=== PATIENT | male | born 1990 | race Caucasian/White ===

== ENCOUNTER 2021-05-13 17:26 | Emergency (ER) | payer OTHER, SELFPAY ==
[2021-05-13 17:40] VITALS: BP 148/96; PULSE 106; RESP 21; TEMP 36.4; O2SAT 98; BMI 26.6
--- NOTE | 2021-05-13 17:43 | ED_ITS ---
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 Patient tells me that he develops hives to bees. He was drinking water earlier today when he noticed there was a bee in the water and he actually swallowed the bee. Since then, patient has noticed rash throughout his body. Patient denies any nausea/vomiting, wheezing, or throat swelling. He does endorse a foreign object sensation in the throat since the incident and thinks he may have swalled the bee. No prior history of anaphylaxis or angioedema to anything. Onset:15 minutes ago Duration:15 minutes Location:home Severity:moderate Review of Systems Narrative: Constitutional: No fever, no chills. HEENT: No vision changes CV: No chest pain, no palpitations PULM: no cough, no dyspnea. GI: No abdominal pain, no N/V/D. : No dysuria MSKEL: No muscle pain SKIN: +hives throughout head/chest/body NEURO: No headache, no focal weakness. HEME: No visible bruises PSYCH: Normal mood Physical Exam Narrative: EXAM NARRATIVE: Head: Atraumatic Eyes: PERRL, conjunctiva without injection ENT: Mucous membrane moist, no signs of oropharyngeal area involvement NECK: Supple, ROM intact LUNGS: LCTAB, no wheezing CV: RRR ABDOMEN: Soft, nontender in all quadrants EXTREMITY: Normal ROM SKIN: +urticaria throughout face, chest and back NEURO: Awake and alert, no focal motor deficits PSYCH: Normal mood and affect Course Vital Signs: Vital signs: Vital Signs Temperature 97.6 F 05/13/21 17:40 Pulse Rate 78 05/13/21 21:19 Respiratory Rate 18 05/13/21 21:19 Blood Pressure 134/77 05/13/21 21:19 Pulse Oximetry 98 05/13/21 21:19 MDM - General Adult MDM Narrative: Medical decision making narrative: 30-year-old male who presents emergency room with foreign object sensation in throat and diffuse urticaria. On exam, patient is hemodynamically stable, no signs of airway or airway compromise. Patient continued be satting well while observed in the emergency room. Intervention: IVF, Pepcid, Benadryl, Solu-Medrol Patient was observed in the emergency room for 3 hours, symptoms of urticaria and erythema significantly improved on reassessment of the face, chest and back. Patient no longer has any hives anywhere. Patient continues to be hemodynamically stable satting at greater than 95%. Patient has no signs of oral airway compromise. Patient reports of foreign object sensation in the anterior throat. I topicalized the patient's throat with viscous lidocaine and visualized oropharynx with glidescope. There is no signs of any impending oral airway compromise. Do not see any retained foreign objects in the throat at this time. I suspect the patient may be stung by a bee in the throat and that is what he is experiencing persistent sensation from a prior cut. At this time, I do not suspect any retained foreign object in the throat. Patient tolerated liquids without any difficulty the emergency room. Rx Benadryl and Pepcid as needed for allergic reaction Disposition: Discharge. Patient is given strict return precaution for any worsening symptoms of throat swelling, difficulty breathing, rash or itchiness, or any new concerning issues. Patient instructed to eat liquid till he feels like he is able to tolerate solids. Discharge Plan Discharge Patient Disposition: Home Clinical Impression: Urticaria, Allergic reaction Condition: Stable Prescriptions: New Benadryl 25 mg capsule 25 mg PO BID PRN (Reason: allergic reaction) 3 Days Qty: 6 RF: 0 Pepcid 20 mg tablet 20 mg PO BID PRN (Reason: allergic reaction) 3 Days Qty: 6 RF: 0 Discharge Orders: Discharge ED (Routine); Ordered 05/13/21 Ordered By: Kashif Arora Discharge Diet: Advance as tolerated Discharge Activity: Resume usual activity Patient Instructions: Allergic Reaction Activity Restrictions/Additional Instructions: Please come back to the emergency room if you notice any more itchiness, difficulty swallowing, drooling, difficulty breathing, or if you have any worsening rash or any other concerning issues. Coding Level of Care Code ED Light Industrial Supervisor for Wilma You
[2021-05-13] MEDS: diphenhydrAMINE 50 mg/mL SDV 1mL IVP (17:46)
[2021-05-13] MEDS: famotidine 20 mg/2 mL INJ 40 MG IVP (17:46)
[2021-05-13 17:50] VITALS: BP 145/100; PULSE 87; RESP 18; O2SAT 96
[2021-05-13] MEDS: lidocaine 2% viscous 15 mL UDC 30 ML MUCOUS MEM (17:56)
[2021-05-13] MEDS: sodium chloride 0.9% 1,000 ML 999 ML IV (17:57)
[2021-05-13 21:19] VITALS: BP 134/77; PULSE 78; RESP 18; O2SAT 98
== END 2021-05-13 21:15 | disposition home or self-care (01) ==
PROVIDERS: Emergency Provider Emergency Medicine
DX: L50.0 Allergic urticaria (principal)
CPT/HCPCS: 96361; 96374; 96375; 99284; J1200; J2930; J3490; J7030

== ENCOUNTER 2022-10-20 08:26 | Observation (INO) | payer OTHER, SELFPAY ==
[2022-10-20] VITALS (7 sets, daily range): BP systolic 125–148; BP diastolic 84–109; PULSE 50–102; RESP 16–18; TEMP 36.7; O2SAT 98–100; BMI 25.0; BMI 24.1
--- NOTE | 2022-10-20 08:55 | CT_ITS ---
WS: [id number] CT ABDOMEN AND PELVIS WITH CONTRAST HISTORY: upper abd pain TECHNIQUE: Imaging performed of the abdomen and pelvis with IV contrast. Single phase imaging of the abdomen. Coronal and sagittal reformats are submitted. All CT scans at [facility] use at [address] one of these dose optimization techniques: automated exposure control; mA and/or kV adjustment per patient size (includes targeted exams where dose is matched to clinical indication); or iterative re construction. IV CONTRAST: Omnipaque 350; 100 mL IV. Oral contrast: No DLP: 369.89 mGy.cm COMPARISON: None available. Lower thorax: Lung bases are clear. Heart is normal size. No hiatal hernia. Liver/biliary system: Normal size liver. Hepatic steatosis along the falciform ligament. Otherwise li evita is normal. Normal portal vein. Gallbladder: Gallbladder is mildly hydropic. There is no wall thickening or enhancement. No stone or pericholecystic fluid identified. Pancreas: Normal size pancreas and pancreatic duct. No adjacent inflammation. Spleen: Normal size spleen. No mass or infarct. Adrenal glands: Normal. Right kidney: Normal. Left kidney: Normal. Aorta: Normal. Lymphadenopathy: None. Free fluid: None. GI tract: Stomach is moderately distended with fluid. There is also duodenal C-loop fluid distention. Distal to the duodenum the small bowel is more normal caliber. Appendix is normal. No colon obstruct ion or significant constipation. Abdominal wall: Unremarkable abdominal wall. No hernia. Pelvis: No free fluid or adenopathy within the pelvis. Bones: Unremarkable. CT/CT abdomen pelvis w con* [id number] IMPRESSION: 1. Very minimally overly distended gallbladder. No stones or pericholecystic f luid identified. For further evaluation gallbladder ultrasound can be obtained to evaluate for stones and sludge. 2. Common bile duct appears normal. 3. Moderate fluid distention of the stomach and duodenum. Consider mild gastro enteritis. 4. Normal appendix.
--- NOTE | 2022-10-20 08:56 | ED_ITS ---
HPI - Abdominal Pain General: Chief Complaint: Abdominal Pain Stated Complaint: Right side pain, SOB Time Seen by Provider: 10/20/22 08:36 Source: patient Mode of arrival: ambulatory Limitations: no limitations History of Present Illness: This patient presents to emergency department because of concerns about constant right upper quadrant pain that began approximately 3 AM. He states the pain woke him from sleep and has been present unremittingly since onset. He states he is not had pain like this before. He has had occasional twinges of similar discomfort but never this sustained. He states it hurts to take a deep breath. He denies any fevers or chills. He did have 1 bout of emesis prior to arrival. He did have a bowel movement and has urinated normally. No history of kidney stones, prior abdominal surgeries, known gallbladder disease. He does not drink alcohol, use street drugs and only rarely smokes tobacco. Course Reevaluation(s): Reevaluation #1: CT scan results noted. We will proceed with a gallbladder ultrasound to further delineate his gallbladder. Patient is currently comfortable and essentially almost pain-free. Time: 13:11 Consultations: Consultation #1: Discussed with Dr. Callaway who agrees to admit patient. Time: 15:08 Vital Signs: Vital signs: Vital Signs Pulse Rate 76 10/20/22 09:31 Respiratory Rate 16 10/20/22 10:29 Blood Pressure 148/96 10/20/22 09:31 Pulse Oximetry 98 10/20/22 09:31 Oxygen Delivery Me thod 10/20/22 08:39 MDM - Abdominal Pain Medical Decision Making Gentleman comes to the emergency department because of right upper quadrant pain that is been waxing and waning over number of days but worsened over the past 24 hours. No history of gallbladder disease that he knows of and no prior abdominal surgeries. His clinical examination reveals right upper quadrant tenderness of diffuse nature. Work-up was engaged to evaluate the potential etiologies of his abdominal pain but gallbladder disease being high on the list of that differential. Initial CT scan was reassuring and that there was no evidence of bowel obstruction, appendicitis, pancreatic inflammation etc. ho wever there is some question of abnormality in his gallbladder region. Subsequent gallbladder ultrasound showed significant sludge pericolic fluid and other changes suggestive of cholecystitis. With normal alk phos, total bili common bile duct stone is unlikely. General surgery was consulted who made treatment recommendations and agreed to admit the patient to the hospital for further care. Differential Diagnosis Likely abdominal pain; Unlikely acute appendicitis, diverticulitis, gastroenteritis or pancreatitis Lab Data I reviewed the patient's lab results. 10/20/22 09:30 10/20/22 09:30 Labs/Radiology: Radiology Impressions Abdomen/Pelvis CT 10/20/22 08:55 IMPRESSION: 1. Very minimally overly distended gallbladder. No stones or pericholecystic fluid identified. For further evaluation gallbladder ultrasound can be obtained to evaluate for stones and sludge. 2. Common bile duct appears normal. 3. Moderate fluid distention of the stomach and duodenum. Consider mild gastroenteritis. 4. Normal appendix. Gallbladder Ultrasound 10/20/22 13:11 IMPRESSION: 1. Mild gallbladder hydrops with severe gallbladder wall edema and fluid. Gallbladder is distended with sludge and debris. No definite stones identified. Finding is consistent with acute cholecystitis. Recommend surgical evaluation. 2. Normal bile duct. Notified Albert Todd DO at 10/20/2022 2:31 PM. Laboratory Results WBC 13.5 10^3/uL (4.0-10.0) H 10/20/22 09:30 RBC 5.01 10^6/uL (4.1-5.3) 10/20/22 09:30 Hgb 15.4 g/dL (11.7-16.6) 10/20/22 09:30 Hct 45.5 % (42.0-52.0) 10/20/22 09:30 MCV 90.8 fl (80-94) 10/20/22 09:30 MCH 30.7 pg (28.0-34.0) 10/20/22 09:30 MCHC 33.8 g/dL (30.0-36.0) 10/20/22 09:30 RDW 11.4 % (12.1-15.1) L 10/20/22 09:30 Plt Count 269 10^3/cmm (130-400) 10/20/22 09:30 MPV 9.6 fL (7.4-10.4) 10/20/22 09:30 Neut % (Auto) 84.3 % 10/20/22 09:30 Lymph % (Auto) 11.3 % 10/20/22 09:30 Spencer % (Auto) 3.2 % 10/20/22 09:30 Eos % (Auto) 0.4 % 10/20/22 09:30 Baso % (Auto) 0.4 % 10/20/22 09:30 Neut # (Auto) 11.35 10^3/uL (1.8-7.7) H 10/20/22 09:30 Lymph # (Auto) 1.5 10^3/uL (0.8-4.8) 10/20/22 09:30 Spencer # (Auto) 0.4 10^3/uL (0.2-0.9) 10/20/22 09:30 Eos # (Auto) 0.1 10^3/uL (0.0-0.8) 10/20/22 09:30 Baso # (Auto) 0.1 10^3/uL (0.0-0.1) 10/20/22 09:30 Nucleated RBC % (auto) 0 % 10/20/22 09:30 Nucleated RBCs # 0.0 /100WBC 10/20/22 09:30 Sodium 137 mmol/L (136-145) 10/20/22 09:30 Potassium 3.7 mmol/L (3.5-5.1) 10/20/22 09:30 Chloride 101 mmol/L (98-107) 10/20/22 09:30 Carbon Dioxide 27 mmol/L (22-29) 10/20/22 09:30 Anion Gap 12.7 (5-19) 10/20/22 09:30 BUN 7 mg/dL (6-20) 10/20/22 09:30 Creatinine 0.9 mg/dL (0.7-1.2) 10/20/22 09:30 GFR Calculation 96.6 mL/min (90-130) 10/20/22 09:30 Glucose 180 mg/dL (65-115) H 10/20/22 09:30 Calculated Osmolality 287 mOsm/kg (285-295) 10/20/22 09:30 Calcium 8.9 mg/dL (8.5-10.5) 10/20/22 09:30 Total Bilirubin 0.2 mg/dL (0.15-1.2) 10/20/22 09:30 AST 13 U/L (0-40) 10/20/22 09:30 ALT 9 U/L (0-41) 10/20/22 09:30 Alkaline Phosphatase 57 U/L (40-130) 10/20/22 09:30 Total Protein 7.1 g/dL (6.6-8.7) 10/20/22 09:30 Albumin 4.2 g/dL (3.5-5.2) 10/20/22 09:30 Globulin 2.9 g/dL (1.3-4.6) 10/20/22 09:30 Lipase 22 U/L (13-60) 10/20/22 09:30 Urine Color Light yellow (Yellow) 10/20/22 10:38 Urine Appearance Clear (CLEAR) 10/20/22 10:38 Urine pH 7 (5-7) 10/20/22 10:38 Ur Specific [place] 1.000 (1.005-1.030) L 10/20/22 10:38 Urine Protein Trace (Negative) H 10/20/22 10:38 Urine Glucose (UA) Norm (Normal) 10/20/22 10:38 Urine Ketones Negative (Negative) 10/20/22 10:38 Urine Blood Neg (Negative) 10/20/22 10:38 Urine Nitrate Negative (Negative) 10/20/22 10:38 Urine Bilirubin Neg (Negative) 10/20/22 10:38 Urine Urobilinogen Norm mg/dL (Negative) 10/20/22 10:38 Ur Leukocyte Esterase Trace (Negative) H 10/20/22 10:38 Urine RBC None /hpf (0-2) 10/20/22 10:38 Urine WBC Rare /hpf (0-5) 10/20/22 10:38 Ur Squamous Epith Cells None /hpf (0-5) 10/20/22 10:38 Amorphous Sediment Not Reportable 10/20/22 10:38 Urine Bacteria None /hpf (NONE) 10/20/22 10:38 Discharge Plan Discharge Patient Disposition: Admitted As Inpatient Clinical Impression: Acute cholecystitis Condition: Stable Prescriptions: No Action Excedrin Migraine 250-250-65 mg Tablet 1 tab PO Q6H PRN (Reason: Migraine Headache) Coding Level of Care Code ED Credit Reporting Clerk for Wilma You
--- NOTE | 2022-10-20 09:38 | PC.NURSE ---
attempted to obtain labs and adm medication pt is not in room.
[2022-10-20 09:50] LABS: Basophils # 0.1 10^3/uL (0.0-0.1); Basophils % 0.4 %; Eosinophils # 0.1 10^3/uL (0.0-0.8); Eosinophils % 0.4 %; Hematocrit 45.5 % (42.0-52.0); Hemoglobin 15.4 g/dL (11.7-16.6); Lymphocytes # 1.5 10^3/uL (0.8-4.8); Lymphocytes % 11.3 %; Mean Corpuscular HGB Conc 33.8 g/dL (30.0-36.0); Mean Corpuscular Hemoglobin 30.7 pg (28.0-34.0); Mean Corpuscular Volume 90.8 fl (80-94); Mean Platelet Volume 9.6 fL (7.4-10.4); Monocytes # 0.4 10^3/uL (0.2-0.9); Monocytes % 3.2 %; Neutrophils # 11.35 10^3/uL (1.8-7.7); Neutrophils % 84.3 %; Nucleated Red Blood Cells % 0 %; Platelet Count 269 10^3/cmm (130-400); Red Blood Count 5.01 10^6/uL (4.1-5.3); Red Cell Distribution Width 11.4 % (12.1-15.1); White Blood Count 13.5 10^3/uL (4.0-10.0)
[2022-10-20] MEDS: iohexol 350 mg/mL 500 mL Btl (per mL) IV (09:51)
[2022-10-20 10:10] LABS: Alanine Aminotransferase 9 U/L (0-41); Albumin Level 4.2 g/dL (3.5-5.2); Alkaline Phosphatase 57 U/L (40-130); Anion Gap 12.7 (5-19); Aspartate Amino Transferase 13 U/L (0-40); Blood Urea Nitrogen 7 mg/dL (6-20); Calcium 8.9 mg/dL (8.5-10.5); Carbon Dioxide 27 mmol/L (22-29); Chloride 101 mmol/L (98-107); Globulin 2.9 g/dL (1.3-4.6); Glomerular Filtration Rate 96.6 mL/min (90-130); Glucose 180 mg/dL (65-115); Lipase 22 U/L (13-60); Osmolality Calculated 287 mOsm/kg (285-295); Potassium 3.7 mmol/L (3.5-5.1); Sodium 137 mmol/L (136-145); Total Bilirubin 0.2 mg/dL (0.15-1.2); Total Protein 7.1 g/dL (6.6-8.7)
[2022-10-20] MEDS: sodium chloride 0.9% 500 ML IV (10:27)
[2022-10-20] MEDS: morphine 4 mg/mL SDV 1 mL IVP (10:29)
[2022-10-20] MEDS: ondansetron 2 mg/ML SDV 2 mL 4 MG IVP (10:31)
[2022-10-20 11:11] LABS: Add Urine Microscopic? YES; Bilirubin Urine Neg (Negative); Blood Urine Neg (Negative); Glucose Urine UA Norm (Normal); Ketones Urine Negative (Negative); Leukocyte Esterase Urine Trace (Negative); Nitrate Urine Negative (Negative); Protein Urine Trace (Negative); Urine Appearance Clear (CLEAR); Urine Color Light yellow (Yellow); Urobilinogen Urine Norm (Negative); pH Urine 7 (5-7)
[2022-10-20 11:12] LABS: Add Urine Culture? No; WBC Urine RARE /hpf (0-5)
--- NOTE | 2022-10-20 12:35 | PC.PHAR ---
pt states he takes no rx medications only otc meds prn
--- NOTE | 2022-10-20 13:11 | US_ITS ---
WS: [id number] RIGHT UPPER QUADRANT ULTRASOUND HISTORY: ruq pain and abn CT COMPARISON: CT 3 2022 Liver: 11.7 cm in length. Normal size liver. No bile duct dilatation or mass. Portal Vein: Normal hepatopetal flow with monophasic waveform. Gallbladder: Abnormal gallbladder. Gallbladder is mildly hydropic as seen on the prior CT. By ultraso und there is marked diffuse wall thickening with pericholecystic fluid. Fluid in the gallbladder wall . Increased vascularity within the thickened gallbladder wall. Gallbladder is distended with fluid an d low level echoes. No shadowing stones identified. CBD: 0.5 cm Pancreas: Normal size and echogenicity. Right kidney: 10.2 cm in length. Normal size and echogenicity. No hydronephrosis or mass. Aorta and IVC: Unremarkable abdominal aorta and IVC. No ascites. US/US gall bladder [id number] IMPRESSION: 1. Mild gallbladder hydrops with severe gallbladder wall edema and fluid. Gall bladder is distended with sludge and debris. No definite stones identified. Fin ding is consistent with acute cholecystitis. Recommend surgical evaluation. 2. Normal bile duct. Notified Albert Todd DO at 10/20/2022 2:31 PM.
--- NOTE | 2022-10-20 15:31 | PC.NURSE ---
ATTEMPTED REPORT NURSE UNAVAILABLE.
--- NOTE | 2022-10-20 15:34 | PC.NURSE ---
REPORT GIVEN TO RAD HAYWARD.
[2022-10-20] MEDS: piperacillin-tazobactam 3.375 GM in sodium chloride 0.9% (plus) 50 ML IV (17:24)
--- NOTE | 2022-10-20 19:35 | PC.NURSE ---
PTS DIET ORDER IS REGULAR DIET UNTIL MIDNIGHT, THEN NPO.
--- NOTE | 2022-10-20 19:51 | PM.HP ---
Providers/Chief Complaint Admitting Physician: Tobias Callaway DO Chief Complaint: Right side pain, SOB History of Present Illness Meir Rivero is a 32 year old male who presented to the hospital with a several week history of intermittent right upper quadrant abdominal pain. He reports that its been fairly consistent for the last 2 days however. The pain is sharp and does not radiate. He reports some nausea but denies any emesis. Denies any diarrhea or constipation. Denies any fever chills. Denies any hematochezia and/or melena. Ultrasound in the ER shows acute cholecystitis. Review of Systems General: Reports: 10 or more systems reviewed and unremarkable except in HPI and below Medications/Allergies Home Medications Medication Instructions Recorded Confirmed Last Taken Type [id number]-[id number]-lrwtlpqy 250 1 tab PO Q6H PRN Migraine Headache 10/20/22 10/20/22 Unknown History mg-250 mg-65 mg tablet (Excedrin Migraine) Allergies Allergy/AdvReac Type Severity Reaction Status Date / Time No Known Drug Allergies Allergy Unknown Verified 10/20/22 12:34 Vitals/I&O/Wt Last Vital Signs Temp 98.0 F 10/20/22 16:48 Pulse 73 10/20/22 16:48 Resp 16 10/20/22 16:48 BP 135/88 10/20/22 16:49 Pulse Ox 100 10/20/22 16:48 O2 Del Method 10/20/22 16:48 10/20/22 10/20/22 10/20/22 06:59 14:59 22:59 Intake Total 550 / 550 Balance 550 / 550 Weight last 48 hrs Weight 145 lb 4.8 oz Weight 150 lb Physical Exam Narrative: General : Patient is well developed , no acute distress, oriented x3 Head : Normal cephalic, a-traumatic. Ears : Pinnae and external canal are normal. Hearing is normal. Eyes : PERRLA, Sclera and injection are normal. No conjunctival discharge. Nose : Mucous membranes are without erythema. Throat : buccal mucosa is normal, gums are without significant recession or hypertrophy. Lungs : Equal chest rise bilaterally, no use of accessory muscles, trachea is midline. Cor : Rate and rhythm are normal. Abdomen : Soft, ND, NT, no g/r/m Extremities : No edema, no cyanosis or clubbing, dorsalis pedis pulses are present bilaterally, non-tender to palpation of calves. Upper extremities are normal bilaterally. Back : non-tender to palpation, no CVA tenderness. Neuro : CN II - XII intact, Upper and lower extremities have equal and full strength Data 10/20/22 09:30 10/20/22 09:30 A&P Assessment and plan (1) Acute cholecystitis: Plan IV antibiotics Pain control N.p.o. after midnight Laparoscopic cholecystectomy in the morning The risks and benefits of the procedure, including but not limited to, bleeding, infection, scar, numbness, pain, damage to surrounding structures, damage to common bile duct requiring additional surgery, conversion to an open procedure, were explained to the patient. He is understanding of the risks and wishes to proceed. Attestations Medical Necessity Statement*: Patient requires at least 1 night in the hospital prior to laparoscopic cholecystectomy in the morning Coding Level of Care Code Acute Code for [facility] Diagnoses Acute cholecystitis K81.0
[2022-10-20] MEDS: HYDROcodone-acetaminophen 7.5-325 mg Tablet 1 TAB PO (20:08)
[2022-10-20] MEDS: LORazepam 0.5 mg Tablet 0.25 MG PO (20:09)
[2022-10-20] MEDS: sodium chloride 0.9% 1,000 ML 125 ML IV (20:20)
[2022-10-21] VITALS (18 sets, daily range): BP systolic 108–128; BP diastolic 69–89; PULSE 61–90; RESP 11–18; TEMP 36.2–36.9; O2SAT 93–100
[2022-10-21] MEDS: piperacillin-tazobactam 3.375 GM in sodium chloride 0.9% (plus) 50 ML IV ×2 (03:57→12:12)
[2022-10-21] MEDS: sodium chloride 0.9% 1,000 ML 125 ML IV ×2 (03:57→12:13)
[2022-10-21] MEDS: HYDROcodone-acetaminophen 7.5-325 mg Tablet 1 TAB PO ×3 (05:30→16:57)
[2022-10-21] MEDS: sodium chloride 0.9% 1,000 ML 30 ML IV (06:43)
--- NOTE | 2022-10-21 06:52 | W.PM.OPSUD ---
Surgery/Procedure H&P Update DATE OF PROCEDURE: October 21, 2022 DATE H&P PERFORMED: 10/20/22 H&P UPDATE INFORMATION: I have reviewed H&P completed within last 30 days, I have examined patient prior to procedure and No changes to prior documentation PLANNED PROCEDURE: Operation Date: 10/21/22 08:10 Proposed Procedures p Laparoscopic Cholecystectomy(Right) - Tobias Callaway DO
--- NOTE | 2022-10-21 07:26 | ANES.PREANE2 ---
Pre-Anesthetic Assessment Height/Weight: Height 1.65 m Weight 65.907 kg Temp Pulse Resp BP Pulse Ox O2 Del Method 97.8 F 85 18 116/84 98 10/21/22 06:39 10/21/22 06:39 10/21/22 06:39 10/21/22 06:39 10/21/22 06:39 10/21/22 06:39 Operation Date: 10/21/22 08:10 Proposed Procedures p Laparoscopic Cholecystectomy(Right) - Tobias Callaway DO Familial anesthetic complications: none Was Beta Mavis taken within 24 hours: N/A Was Clonidine taken within 24 hours: N/A Last intake: Intake Last Liquid Date 10/20/22 Last Liquid Time 20:00 Last Solid Date 10/20/22 Last Solid Time 20:00 Social Tobacco and No alcohol Exam alert, oriented x 3 and regular rate & rhythm Airway Submandibular: within normal limits Cervical ROM: within normal limits Mallampati: Class I Dentition: chipped Comments: Comments: Poor dentition, missing some Pulmonary Chronic Obstructive Pulmonary Disease Anesthetic Plan ASA status: 2 Anesthesia: General Medications/Allergies Home Medications Medication Instructions Recorded Confirmed Last Taken Type [id number]-[id number] 250 1 tab PO Q6H PRN Migraine Headache 10/20/22 10/20/22 Unknown History mg-250 mg-65 mg tablet (Excedrin Migraine) Allergies Allergy/AdvReac Type Severity Reaction Status Date / Time No Known Drug Allergies Allergy Unknown Verified 10/20/22 12:34 Current Medications Generic Name Dose Route Start Last Admin Trade Name Freq PRN Reason Stop Dose Admin Hydrocodone Bitart/Acetaminophen 1 tab 10/20/22 19:30 10/21/22 05:30 Hydrocodone-Acetaminophen 7.5-325 Mg Tablet PO 1 tab Q4H PRN Administration MODERATE PAIN Sodium Chloride 1,000 mls @ 125 mls/hr 10/20/22 20:00 10/21/22 03:57 Sodium Chloride 0.9% IV 125 mls/hr .Q8H YESSENIA Administration Piperacillin Sod/Tazobactam 50 mls @ 12.5 mls/hr 10/20/22 23:30 10/21/22 03:57 Sod 3.375 gm/ Sodium Chloride IV 12.5 mls/hr Q8H YESSENIA Administration Protocol Sodium Chloride 1,000 mls @ 30 mls/hr 10/21/22 06:45 10/21/22 06:43 Sodium Chloride 0.9% IV 10/22/22 06:44 30 mls/hr .Q24H YESSENIA Administration Lorazepam 0.25 mg 10/20/22 19:31 10/20/22 20:09 Lorazepam 0.5 Mg Tablet PO 0.25 mg TID PRN Administration ANXIETY Data Anesthesia 10/20/22 09:30 10/20/22 09:30 Short CBC 10/20/22 Range/Units 09:30 WBC 13.5 H (4.0-10.0) 10^3/uL Hgb 15.4 (11.7-16.6) g/dL Hct 45.5 (42.0-52.0) % MCV 90.8 (80-94) fl Plt Count 269 (130-400) 10^3/cmm Neut % (Auto) 84.3 % Neut # (Auto) 11.35 H (1.8-7.7) 10^3/uL BMP 10/20/22 09:30 Sodium 137 Potassium 3.7 Chloride 101 Carbon Dioxide 27 BUN 7 Creatinine 0.9 Glucose 180 H Calcium 8.9 Liver Function 10/20/22 Range/Units 09:30 Total Bilirubin 0.2 (0.15-1.2) mg/dL AST 13 (0-40) U/L ALT 9 (0-41) U/L Alkaline Phosphatase 57 (40-130) U/L Albumin 4.2 (3.5-5.2) g/dL Urine 10/20/22 Range/Units 10:38 Urine Color Light yellow (Yellow) Urine Appearance Clear (CLEAR) Urine pH 7 (5-7) Ur Specific [place] 1.000 L (1.005-1.030) Urine Protein Trace H (Negative) Urine Glucose (UA) Norm (Normal) Urine Ketones Negative (Negative) Urine Nitrate Negative (Negative) Urine Bilirubin Neg (Negative) Ur Leukocyte Esterase Trace H (Negative) Urine RBC None (0-2) /hpf Urine WBC Rare (0-5) /hpf Cardiac Studies: No Data to Display
[2022-10-21] MEDS: lidocaine-epi 2% 20 mL INJ INJECTION (08:15)
--- NOTE | 2022-10-21 08:45 | P.OP_ITS ---
Operative Report Date of procedure: October 21, 2022 Pre-op diagnosis: Acute cholecystitis Post-op diagnosis: same Procedure done: Laparoscopic cholecystectomy Specimens removed/disposition: Gallbladder Surgeon: Dr. Tobias Callaway DO Anesthesia: General Estimated blood loss (mL): 5 Complications: None apparent Brief History: Is a very pleasant 32-year-old gentleman who came to the ER with acute cholecystitis. Laparoscopic cholecystectomy was indicated. The risk and benefits were explained and documented. Procedure: Patient was wheeled into the operative room and placed on the OR table in a supine position. Abdomen was inspected prepped and draped in usual sterile fashion. Time-out was performed and all present were in agreement. A 15 blade scalp was used to make a stab incision in the left upper quadrant and intra- abdominal insufflation was achieved using a Veress needle. After localizing the tissue incisions were made and a 5 millimeter trocar was placed into the umbilicus as well as 2 in the right upper quadrant. A 12 millimeter trocar was placed in the epigastrium. The gallbladder was hydropic and inflamed. Omentum was adhered to the gallbladder and was taken down bluntly. Gallbladder was grasped and elevated. The triangle of Calot was carefully dissected using blunt dissection and electrocautery until the triangle of Calot clearly identified. The cystic duct was clipped proximally and double clipped distally. The duct was then ligated proximally. The cystic artery was doubly clipped and ligated. The gallbladder was then removed from the liver bed using electrocautery. The gallbladder was removed from the abdomen using an Endo-Catch bag through the epigastric incision. The liver bed was inspected and no bleeding was seen. The abdomen was irrigated and suctioned. All ports removed. Skin was washed and dried. Incisions were closed with 3-0 and 4-O Vicryl in a subcuticular interrupted fashion. Skin glue was applied. Patient tolerated the procedure well.
--- NOTE | 2022-10-21 10:55 | PC.CHAP ---
Pastoral Care Encounter/Spiritual Assessment Type of Contact [] Declined change director visit [] Patient/Family/Request visit [] Outpatient visit [] Follow-up visit [] Physician referral [] Code/Alert [x] Routine visit [] Staff referral [] Actively dying [] Patient sleeping [] Family support [] [] Out of room [] Palliative care [] [x] Receiving care in room [] Pre-surgical visit [] Trauma [] Long length of stay [] ICU visit [] Other: Relational/Emotional Strength [] Patient feels connected with others/family/visitors/staff [] Distress [] Loneliness/isolation [] Abandonment Spirituality of Patient [] Person of Jessie [] Attends Yazidi of their Jessie [] Believes in Prayer [] Reads Bible or Synagogue materials [] There are Spiritual issues to be addressed Set Off Press Operator Interventions [x] Prayer [] Active listening [] Non-anxious presence [] Spiritual/emotional support [] Crisis/trauma care [] Spiritual counseling [] Bereavement support [] Provided bereavement packet [] Provided Bible/devotional materials [] Provided toy/stuffed animal, coloring book to patient or family member [] Provided Communion [] Anointing/[place] [] Salvation [] Completed spiritual assessment [] Other: Impact on Illness or Injury [] Angry [] Fearful [] Anxious [] Often cries [] Exhaustion [] Unable to work [] Unable to attend gnosticism [] Unable to walk/stand [] Unable to read [] Unable to drive [] Unable to eat/drink [] Unable to sleep [] Unable to be with family [] Patient intubated [] Other: Summary Time spent with patient
--- NOTE | 2022-10-21 15:45 | ANE.PACU2 ---
Inpatient post-anesthesia follow up: Airway intact: Yes Vital signs: Temperature 98.0 F Pulse Rate 61 Respiratory Rate 16 Blood Pressure 114/79 Pulse Oximetry 97 Oxygen Delivery Me thod [ Room Air Current Rate & Del ja] Oxygen Delivery Me thod Room Air Oxygen Flow Rate 5 Fraction of Inspir ed Oxygen Hydration adequate: Yes Nausea and vomiting: No Pain level: 3 Mental status: Baseline
--- NOTE | 2022-10-21 16:42 | P.DS_ITS ---
Discharge Providers Date of Admission: 10/20/22 15:26 Date of Discharge: October 21, 2022 Attending Provider at Admission: Tobias Callaway DO Attending Provider at Discharge: Tobias Callaway DO Diagnoses at Discharge Discharge Diagnosis (1) Acute cholecystitis: Status: Acute Reason for Visit Reason for Visit: Right side pain, SOB Hospital Course Hospital Course This is a very pleasant 32-year-old gentleman who presented to the hospital with acute cholecystitis. He underwent an uneventful laparoscopic cholecystectomy and was discharged home the same day in good condition Physical Exam Narrative: General : Patient is well developed , no acute distress, oriented x3 Head : Normal cephalic, a-traumatic. Ears : Pinnae and external canal are normal. Hearing is normal. Eyes : PERRLA, Sclera and injection are normal. No conjunctival discharge. Nose : Mucous membranes are without erythema. Throat : buccal mucosa is normal, gums are without significant recession or hypertrophy. Lungs : Equal chest rise bilaterally, no use of accessory muscles, trachea is midline. Cor : Rate and rhythm are normal. Abdomen : Soft, ND, appropriately tender, no g/r/m Incisions intact without erythema or exudate Extremities : No edema, no cyanosis or clubbing, dorsalis pedis pulses are present bilaterally, non-tender to palpation of calves. Upper extremities are normal bilaterally. Back : non-tender to palpation, no CVA tenderness. Neuro : CN II - XII intact, Upper and lower extremities have equal and full strength Discharge Data Studies Completed and Pending Completed Studies During Hospitalization Category Date Time Status CT abdomen pelvis w con* [id number] Stat Cat Scan 10/20/22 08:55 Completed US gall bladder [id number] Stat Ultrasound 10/20/22 13:11 Completed Pending at discharge Category Date Time Status Pathology: Surgical [PTH] Routine Pth 10/21/22 08:56 Received Radiology Impressions Abdomen/Pelvis CT 10/20/22 08:55 IMPRESSION: 1. Very minimally overly distended gallbladder. No stones or pericholecystic fluid identified. For further evaluation gallbladder ultrasound can be obtained to evaluate for stones and sludge. 2. Common bile duct appears normal. 3. Moderate fluid distention of the stomach and duodenum. Consider mild gastroenteritis. 4. Normal appendix. Gallbladder Ultrasound 10/20/22 13:11 IMPRESSION: 1. Mild gallbladder hydrops with severe gallbladder wall edema and fluid. Gallbladder is distended with sludge and debris. No definite stones identified. Finding is consistent with acute cholecystitis. Recommend surgical evaluation. 2. Normal bile duct. Notified Albert Todd DO at 10/20/2022 2:31 PM. Laboratory Results WBC 13.5 10^3/uL (4.0-10.0) H 10/20/22 09:30 RBC 5.01 10^6/uL (4.1-5.3) 10/20/22 09:30 Hgb 15.4 g/dL (11.7-16.6) 10/20/22 09:30 Hct 45.5 % (42.0-52.0) 10/20/22 09:30 MCV 90.8 fl (80-94) 10/20/22 09:30 MCH 30.7 pg (28.0-34.0) 10/20/22 09:30 MCHC 33.8 g/dL (30.0-36.0) 10/20/22 09:30 RDW 11.4 % (12.1-15.1) L 10/20/22 09:30 Plt Count 269 10^3/cmm (130-400) 10/20/22 09:30 MPV 9.6 fL (7.4-10.4) 10/20/22 09:30 Neut % (Auto) 84.3 % 10/20/22 09:30 Lymph % (Auto) 11.3 % 10/20/22 09:30 [place] % (Auto) 3.2 % 10/20/22 09:30 Eos % (Auto) 0.4 % 10/20/22 09:30 Baso % (Auto) 0.4 % 10/20/22 09:30 Neut # (Auto) 11.35 10^3/uL (1.8-7.7) H 10/20/22 09:30 Lymph # (Auto) 1.5 10^3/uL (0.8-4.8) 10/20/22 09:30 [place] # (Auto) 0.4 10^3/uL (0.2-0.9) 10/20/22 09:30 Eos # (Auto) 0.1 10^3/uL (0.0-0.8) 10/20/22 09:30 Baso # (Auto) 0.1 10^3/uL (0.0-0.1) 10/20/22 09:30 Nucleated RBC % (auto) 0 % 10/20/22 09:30 Nucleated RBCs # 0.0 /100WBC 10/20/22 09:30 Sodium 137 mmol/L (136-145) 10/20/22 09:30 Potassium 3.7 mmol/L (3.5-5.1) 10/20/22 09:30 Chloride 101 mmol/L (98-107) 10/20/22 09:30 Carbon Dioxide 27 mmol/L (22-29) 10/20/22 09:30 Anion Gap 12.7 (5-19) 10/20/22 09:30 BUN 7 mg/dL (6-20) 10/20/22 09:30 Creatinine 0.9 mg/dL (0.7-1.2) 10/20/22 09:30 GFR Calculation 96.6 mL/min (90-130) 10/20/22 09:30 Glucose 180 mg/dL (65-115) H 10/20/22 09:30 Calculated Osmolality 287 mOsm/kg (285-295) 10/20/22 09:30 Calcium 8.9 mg/dL (8.5-10.5) 10/20/22 09:30 Total Bilirubin 0.2 mg/dL (0.15-1.2) 10/20/22 09:30 AST 13 U/L (0-40) 10/20/22 09:30 ALT 9 U/L (0-41) 10/20/22 09:30 Alkaline Phosphatase 57 U/L (40-130) 10/20/22 09:30 Total Protein 7.1 g/dL (6.6-8.7) 10/20/22 09:30 Albumin 4.2 g/dL (3.5-5.2) 10/20/22 09:30 Globulin 2.9 g/dL (1.3-4.6) 10/20/22 09:30 Lipase 22 U/L (13-60) 10/20/22 09:30 Urine Color Light yellow (Yellow) 10/20/22 10:38 Urine Appearance Clear (CLEAR) 10/20/22 10:38 Urine pH 7 (5-7) 10/20/22 10:38 Ur Specific [place] 1.000 (1.005-1.030) L 10/20/22 10:38 Urine Protein Trace (Negative) H 10/20/22 10:38 Urine Glucose (UA) Norm (Normal) 10/20/22 10:38 Urine Ketones Negative (Negative) 10/20/22 10:38 Urine Blood Neg (Negative) 10/20/22 10:38 Urine Nitrate Negative (Negative) 10/20/22 10:38 Urine Bilirubin Neg (Negative) 10/20/22 10:38 Urine Urobilinogen Norm mg/dL (Negative) 10/20/22 10:38 Ur Leukocyte Esterase Trace (Negative) H 10/20/22 10:38 Urine RBC None /hpf (0-2) 10/20/22 10:38 Urine WBC Rare /hpf (0-5) 10/20/22 10:38 Ur Squamous Epith Cells None /hpf (0-5) 10/20/22 10:38 Amorphous Sediment Not Reportable 10/20/22 10:38 Urine Bacteria None /hpf (NONE) 10/20/22 10:38 Procedures Performed Laparoscopic cholecystectomy Vitals Last Vital Signs Temp 98.0 F 10/21/22 11:45 Pulse 61 10/21/22 12:45 Resp 16 10/21/22 12:45 BP 114/79 10/21/22 12:45 Pulse Ox 97 10/21/22 12:45 O2 Del Method 10/21/22 12:45 O2 Flow Rate 5 10/21/22 09:20 Discharge Plan Discharge Patient Disposition: Home Condition: Stable Prescriptions: New amoxicillin-pot clavulanate 875-125 mg tablet 1 tab PO BID Qty: 12 0RF hydrocodone-acetaminophen 5-325 mg tablet 1 tab PO Q4H PRN (Reason: pain) Qty: 30 0RF DOK 100 mg capsule 100 mg PO BID Qty: 20 0RF Held Excedrin Migraine 250-250-65 mg Tablet 1 tab PO Q6H PRN (Reason: Migraine Headache) Hold Instructions: Resume on 10/24/22. Discharge Orders: Discharge Order (Routine); Ordered 10/21/22 Ordered By: Tobias Callaway Referrals: Tobias Callaway DO [Physician] - 2 weeks Discharge Diet: Advance as tolerated Discharge Activity: Resume usual activity Patient Instructions: Opioid Safety, Post Anesthesia Care Activity Restrictions/Additional Instructions: Do not soak incisions underwater for 2 weeks. Shower daily. Discharge Attestations Time Spent in Discharge Care*: less than 30 min Quality Metrics Clinical Quality Measures [ No reported AMI, CVA or VTE this stay] Coding Level of Care Code Acute Code for Chg Fwd Diagnoses Acute cholecystitis K81.0
== END 2022-10-21 17:45 | disposition home or self-care (01) ==
LOC: ER 15:08 → MEDSURG 16:46
PROVIDERS: Admitting Provider Surgery; Emergency Provider Emergency Medicine; Visit Provider Surgery
PROC: 0FT44ZZ Resection of Gallbladder, Percutaneous Endoscopic Approach (ICD-10-PCS; CPT 47562; principal; 2022-10-21 08:10)
DX: K81.1 Chronic cholecystitis (principal); J44.9 Chronic obstructive pulmonary disease, unspecified
CPT/HCPCS: 47562; 36415; 74177; 76705; 80053; 81001; 83690; 85025; 88304; 96365; 96366; 96375; 99285; G0378; J1100; J2270; J2405; J2543; J2704; J2710; J3010; J3490; J7030; J7040; Q9967

== ENCOUNTER → 2022-11-02 14:41 | Outpatient (BNVA) | payer OTHER, SELFPAY | PROVIDERS: Visit Provider Surgery | DX: Z98.890 Other specified postprocedural states (principal) | CPT/HCPCS: 99024 ==